=== PATIENT | male | born 1970 | race Caucasian/White ===

== ENCOUNTER 2017-07-06 01:29 | Emergency (ER) | payer SELFPAY ==
[2017-07-06 01:42] VITALS: BP 124/69; RESP 16; O2SAT 96
--- NOTE | 2017-07-06 01:56 | PD ---
HPI Chief Complaint: Alcohol/Drug Intoxication Time Seen by Provider: 01:41 Travel History International Travel<30 days: No Contact w/Intl Traveler<30days: No Traveled to known affect area: No History of Present Illness HPI This is a middle-age male brought in by EMS after being found sleeping on the side of the street intoxicated. The patient had his shirt up under his head. The patient is heavily intoxicated. He cannot answer any questions. There is no definite medication on the patient. There is no evidence of any trauma. [facility] Past Medical History Medical History: Unable to Obtain Tetanus Vaccination: Unknown Past Surgical History Surgical History: Unable to Obtain Social History Alcohol Use: Yes Tobacco Use: Yes Allergies-Medications (Allergen,Severity, Reaction): Coded Allergies: Unable to Assess (Verified Allergy, Unknown, 07/06/17) Reported Meds & Prescriptions Reported Meds & Active Scripts Active Active Prescriptions or Reported Medications Unobtainable Review of Systems ROS Limitations: Intoxication Physical Exam Narrative GENERAL: Well-nourished, well-developed patient. The patient is heavily intoxicated. His speech is slurred. There is no evidence of trauma. He is handling his secretions well. He has a positive gag. The patient is incontinent of urine. SKIN: Warm and dry. HEAD: Normocephalic and atraumatic. EYES: No scleral icterus. No injection or drainage. ENT: No nasal drainage noted. Mucous membranes pink. Airway patent. NECK: Supple, trachea midline. Moves head freely without obvious discomfort. CARDIOVASCULAR: Regular rate and rhythm without murmurs, gallops, or rubs. RESPIRATORY: Breath sounds equal bilaterally. No accessory muscle use. GASTROINTESTINAL: Abdomen soft, non-tender, nondistended. EXTREMITIES: No cyanosis or edema. BACK: Nontender without obvious deformity. No CVA tenderness. NEURO: Patient is alert to person only but heavily intoxicated.. no sensorimotor deficits. Nonfocal. Slurred speech. Ataxic from alcohol. PSYCH: No delusions. No auditory or visual hallucinations. Data Data Last Documented VS Vital Signs Date Time Temp Pulse Resp B/P (MAP) Pulse Ox O2 Delivery O2 Flow Rate FiO2 07/06/17 02:51 81 16 112/69 (83) 96 Room Air Orders Orders Restraints Non-Violent BRENDON.Q3H (07/06/17 01:41) Ed Discharge Order (07/06/17 02:52) Haloperidol Inj (Haldol Inj) (07/06/17 04:00) [facility] Medical Decision Making Medical Screen Exam Complete: Yes Emergency Medical Condition: Yes Medical Record Reviewed: Yes Differential Diagnosis Differential diagnoses: Alcohol intoxication, substance abuse, electrolyte abnormality, malingering Narrative Course Patient is placed in soft restraints due to his inability to cooperate with the medical staff. He is tender his care and is at risk to injuring himself or the staff. Patient's Accu-Chek is 108. There is no evidence of trauma. He will be monitored. At this time no testing is indicated. He will be allowed to sober up and then he'll be discharged in the morning. The patient is also given Haldol 10 mg IM. Diagnosis Primary Impression: Alcohol intoxication Qualified Codes: F10.920 - Alcohol use, unspecified with intoxication, uncomplicated Patient Instructions: General Instructions Additional Instructions: Rest. Increase fluids. Avoid alcohol. Avoid illegal substances. Follow-up with [facility] for detox. Do not operate a car or any heavy machinery under the influence of alcohol or drugs. Follow-up with a medical doctor this week. Return to the ER for emergencies Med/Other Pt SpecificInfo: No Meds Exist/No RX given Scripts Unable to Obtain Active Prescriptions or Reported Meds Disposition: 01 DISCHARGE HOME Condition: Stable Wyatt Carlson Jul 06, 2017 01:56
[2017-07-06 02:21] VITALS: BP 124/69; RESP 16; O2SAT 96
[2017-07-06 02:51] VITALS: BP 112/69; PULSE 81; RESP 16; O2SAT 96
[2017-07-06] MEDS ORDERED: HALOPERIDOL LACTATE 5 MG/ML AMP IM ONE (04:00)
[2017-07-06 05:49] VITALS: BP 110/67; PULSE 80; RESP 16; O2SAT 96
[2017-07-06 07:05] VITALS: BP 147/76; PULSE 82; RESP 16; O2SAT 97
[2017-07-06 08:59] VITALS: BP 158/84
== END 2017-07-06 09:05 | disposition home or self-care (01) ==
LOC: EDBD 01:29 → NEPD 01:29
DX: F10.129 Alcohol abuse with intoxication, unspecified (principal); Z72.0 Tobacco use
CPT/HCPCS: 96372; 99285; J1630

== ENCOUNTER 2017-07-24 02:48 | Emergency (ER) | payer OTHER ==
[2017-07-24 02:50] VITALS: BP 114/85; PULSE 83; RESP 18; TEMP 98.8; O2SAT 96
[2017-07-24] MEDS ORDERED: HALOPERIDOL LACTATE 5 MG/ML AMP IM ONE (03:00)
--- NOTE | 2017-07-24 03:50 | PD ---
HPI Chief Complaint: Alcohol/Drug Intoxication Time Seen by Provider: 02:52 Travel History International Travel<30 days: No Contact w/Intl Traveler<30days: No Traveled to known affect area: No History of Present Illness HPI 46-year-old white male presents to emergency department are act by PD. The patient allegedly was intoxicated walking on the street without his pants on. This is a patient who had just seen 2 weeks ago for a act to alcohol intoxication. The patient here his agitated and resisting his care. He is medicated with Haldol 10 mg IM. This is a similar presentation he had 2 weeks ago and required medication. The patient is heavily intoxicated in the history is not obtainable at this time. There is no evidence of any acute trauma. [facility] Past Medical History Medical History: Unable to Obtain Tetanus Vaccination: Unknown Influenza Vaccination: No Past Surgical History Surgical History: Unable to Obtain Social History Alcohol Use: Yes Tobacco Use: Yes Substance Use: No Allergies-Medications (Allergen,Severity, Reaction): Coded Allergies: Unable to Assess (Verified Allergy, Unknown, 07/24/17) Reported Meds & Prescriptions Reported Meds & Active Scripts Active Active Prescriptions or Reported Medications Unobtainable Review of Systems ROS Limitations: Intoxication Physical Exam Narrative GENERAL: Well-nourished, well-developed patient. Appears heavily intoxicated. He has no pants on. He is using profanities, he is resisting without violence. SKIN: Warm and dry. HEAD: Evidence of old trauma. EYES: No scleral icterus. No injection or drainage. ENT: No nasal drainage noted. Mucous membranes pink. Airway patent. NECK: Supple, trachea midline. Moves head freely without obvious discomfort. CARDIOVASCULAR: Regular rate and rhythm without murmurs, gallops, or rubs. RESPIRATORY: Breath sounds equal bilaterally. No accessory muscle use. GASTROINTESTINAL: Abdomen soft, non-tender, nondistended. EXTREMITIES: No cyanosis or edema. BACK: Nontender without obvious deformity. No CVA tenderness. NEURO: Patient is alert and oriented. no sensorimotor deficits. Nonfocal. Slurred mumbled speech. PSYCH: No delusions. No auditory or visual hallucinations. Data Data Last Documented VS Vital Signs Date Time Temp Pulse Resp B/P (MAP) Pulse Ox O2 Delivery O2 Flow Rate FiO2 07/24/17 02:50 98.8 83 18 114/85 (95) 96 Orders Orders Haloperidol Inj (Haldol Inj) (07/24/17 03:00) [facility] Medical Decision Making Medical Screen Exam Complete: Yes Emergency Medical Condition: Yes Medical Record Reviewed: Yes Differential Diagnosis Differential diagnoses: Alcohol intoxication, substance abuse, electrolyte abnormality, malingering Narrative Course Patient is medicated with Haldol 10 mg IM. The patient will be allowed to sleep it off here in the ER once he exhibits sobriety is Marchman act will be lifted. This is alcohol intoxication Diagnosis Primary Impression: Alcohol intoxication Qualified Codes: F10.920 - Alcohol use, unspecified with intoxication, uncomplicated Patient Instructions: General Instructions Additional Instructions: Rest. Increase fluids. Avoid alcohol. Avoid illegal substances. Follow-up with [facility] for detox. Do not operate a car or any heavy machinery under the influence of alcohol or drugs. Follow-up with a medical doctor this week. Return to the ER for emergencies Med/Other Pt SpecificInfo: No Meds Exist/No RX given Scripts Unable to Obtain Active Prescriptions or Reported Meds Disposition: 01 DISCHARGE HOME Wyatt Carlson Jul 24, 2017 03:50
--- NOTE | 2017-07-24 07:24 | PD ---
Physical Exam Date Seen by Provider: Jul 24, 2017 Narrative 46y male present to the ED intoxicated and without pants. He was picked up by the police department and brought to the ED for evaluation and as a [place] Act. Pt understands where he is, why he is here, and feel that he is ready to go home. Pt ambulated normally around the emergency department, was able to utilize restroom on his own, and has a place to go home. Pt apparently has a to go home to. He was released and advised to go home. Data Data Last Documented VS Vital Signs Date Time Temp Pulse Resp B/P (MAP) Pulse Ox O2 Delivery O2 Flow Rate FiO2 07/24/17 02:50 98.8 83 18 114/85 (95) 96 Orders Orders Haloperidol Inj (Haldol Inj) (07/24/17 03:00) MDM Supervised Visit with ELSA: Yes Diagnosis Primary Impression: Alcohol intoxication Qualified Codes: F10.920 - Alcohol use, unspecified with intoxication, uncomplicated Referrals: Family Practice Physician call for appointment Patient Instructions: General Instructions, Alcohol Intoxication (ED) Departure Forms: Tests/Procedures Additional Instruction: Rest. Increase fluids. Avoid alcohol. Avoid illegal substances. Follow-up with [facility] for detox. Do not operate a car or any heavy machinery under the influence of alcohol or drugs. Follow-up with a medical doctor this week. Return to the ER for emergencies Scripts Unable to Obtain Active Prescriptions or Reported Meds Disposition: 01 DISCHARGE HOME Lamar Dumont Jul 24, 2017 07:24
== END 2017-07-24 07:27 | disposition home or self-care (01) ==
LOC: NEPD 02:48
DX: F10.129 Alcohol abuse with intoxication, unspecified (principal)
CPT/HCPCS: 96372; 99282; J1630

== ENCOUNTER 2017-08-24 16:10 | Emergency (ER) | payer OTHER ==
[~2017-08-24] VITALS: Ht 177.8 cm; Wt 80.0 kg
[2017-08-24] MEDS ORDERED: SODIUM CHLOR 0.9% 1000 ML INJ 1,000 ML IV ONE (16:30)
[2017-08-24] MEDS ORDERED: ZIPRASIDONE MESYLATE 20 MG VIAL IM ONE (17:00)
--- NOTE | 2017-08-24 17:04 | PD ---
HPI Chief Complaint: Marchman act with presumed alcohol intoxication Time Seen by Provider: 16:22 Travel History International Travel<30 days: No (unknown) Contact w/Intl Traveler<30days: No (unknown) Traveled to known affect area: No ( unknown ) History of Present Illness HPI This is a 47-year-old male who is brought in by [place] police under a [place] act. [place]. The patient was also combative and agitated. The patient was kicking and spitting at the security and police officers. Patient appears very intoxicated with slurred speech and is extremely belligerent. I am unable to obtain any history or review of systems secondary to his severely intoxicated state. The patient is screaming profanities at both myself and the rest of the staff members. [facility] Social History Alcohol Use: Yes Tobacco Use: Yes Substance Use: No Allergies-Medications (Allergen,Severity, Reaction): Coded Allergies: Unable to Assess (Verified Allergy, Unknown, 07/24/17) Reported Meds & Prescriptions Reported Meds & Active Scripts Active Active Prescriptions or Reported Medications Unobtainable Review of Systems ROS Limitations: Intoxication (unable to obtain any review of systems.) Except as stated in HPI: all other systems reviewed are Neg Physical Exam Narrative GENERAL: Well-developed well-nourished male in no acute respiratory distress. The patient appears to be acutely agitated and intoxicated. SKIN: Focused skin assessment warm/dry. HEAD: Normocephalic. The patient has an abrasion to his left upper forehead. EYES: No scleral icterus. No injection or drainage. ENT: No nasal bleeding or discharge. Mucous membranes pink and moist. NECK: Trachea midline. Supple. CARDIOVASCULAR: Regular rate and rhythm. No murmur appreciated. RESPIRATORY: No accessory muscle use. Clear to auscultation. Breath sounds equal bilaterally. The patient would not cooperate with pulmonary exam however no obvious abnormal breath sounds. GASTROINTESTINAL: Abdomen soft, obese non-tender, nondistended. MUSCULOSKELETAL: No obvious deformities. No clubbing. No cyanosis. No edema. There is an abrasion to his right lower knee. The patient was observed trying to kick me with that knee. NEUROLOGICAL: Awake and combative and belligerent. No obvious cranial nerve deficits. Motor grossly within normal limits. Severe slurred speech. PSYCHIATRIC: Appropriate mood and affect; insight and judgment normal. Data Data Orders Orders Complete Blood Count With Diff (08/24/17 16:24) Comprehensive Metabolic Panel (08/24/17 16:24) Ecg Monitoring (08/24/17 16:24) Oximetry (08/24/17 16:24) Drug Screen, Random Urine (08/24/17 16:24) Alcohol (Ethanol) (08/24/17 16:24) Sodium Chlor 0.9% 1000 Ml Inj (Ns 1000 M (08/24/17 16:30) Knee, Ltd (1 Or 2vws) (08/24/17 16:24) Ziprasidone Inj (Geodon Inj) (08/24/17 17:00) Restraints Violent (08/24/17 19:04) Labs Laboratory Tests Test 08/24/17 17:50 White Blood Count 9.4 TH/MM3 Red Blood Count 4.55 MIL/MM3 Hemoglobin 13.4 GM/DL Hematocrit 39.9 % Mean Corpuscular Volume 87.6 FL Mean Corpuscular Hemoglobin 29.4 PG Mean Corpuscular Hemoglobin Concent 33.6 % Red Cell Distribution Width 14.3 % Platelet Count 385 TH/MM3 Mean Platelet Volume 7.8 FL Neutrophils (%) (Auto) 67.9 % Lymphocytes (%) (Auto) 23.5 % Monocytes (%) (Auto) 4.8 % Eosinophils (%) (Auto) 3.0 % Basophils (%) (Auto) 0.8 % Neutrophils # (Auto) 6.4 TH/MM3 Lymphocytes # (Auto) 2.2 TH/MM3 Monocytes # (Auto) 0.5 TH/MM3 Eosinophils # (Auto) 0.3 TH/MM3 Basophils # (Auto) 0.1 TH/MM3 CBC Comment DIFF FINAL Differential Comment Blood Urea Nitrogen 11 MG/DL Creatinine 1.12 MG/DL Random Glucose 97 MG/DL Albumin 3.5 GM/DL Calcium Level 8.2 MG/DL Aspartate Amino Transf (AST/SGOT) 28 U/L Alanine Aminotransferase (ALT/SGPT) 25 U/L Sodium Level 140 MEQ/L Potassium Level 3.9 MEQ/L Chloride Level 109 MEQ/L Carbon Dioxide Level 22.2 MEQ/L Anion Gap 9 MEQ/L Estimat Glomerular Filtration Rate 71 ML/MIN MDM Medical Decision Making Medical Screen Exam Complete: Yes Emergency Medical Condition: Yes Differential Diagnosis Acute alcohol intoxication versus polysubstance abuse versus metabolic derangement Narrative Course 47-year-old male presents here under her Marchman act. The patient is acutely agitated and belligerent. He is violent towards staff. The patient is been noted to spit and kicked or stepped member. He is placed in physical restraints. He's been given Geodon 10 mg signed times one dose. Alcohol levels pending at this time. He'll be signed out to Dr. Xavier Bryant, physician replacing it changed shift. The patient will need to be observed until he is appropriately sober. Diagnosis Primary Impression: Alcohol intoxication Additional Impression: Aggressive behavior Scripts Unable to Obtain Active Prescriptions or Reported Meds Fabio Lucero MD Aug 24, 2017 17:04
[2017-08-24 18:30] LABS: AUTOMATED NEUTROPHIL # 6.4 TH/MM3 (1.8-7.7); BASOPHIL # 0.1 TH/MM3 (0-0.2); BASOPHIL % 0.8 % (0.0-2.0); EOSINOPHIL # 0.3 TH/MM3 (0-0.4); HEMATOCRIT 39.9 % (39.0-51.0); HEMOGLOBIN 13.4 GM/DL (13.0-17.0); LYMPH % 23.5 % (9.0-44.0); LYMPHOCYTE # 2.2 TH/MM3 (1.0-4.8); MEAN CELL VOLUME 87.6 FL (80.0-100.0); MEAN CORPUSCULAR HEMOGLOBIN 29.4 PG (27.0-34.0); MEAN CORPUSCULAR HGB CONC 33.6 % (32.0-36.0); MEAN PLATELET VOLUME 7.8 FL (7.0-11.0); MONO % 4.8 % (0.0-8.0); MONOCYTE # 0.5 TH/MM3 (0-0.9); NEUT % 67.9 % (16.0-70.0); PLATELET COUNT 385 TH/MM3 (150-450); RED BLOOD COUNT 4.55 MIL/MM3 (4.50-5.90); RED CELL DISTRIBUTION WIDTH 14.3 % (11.6-17.2); WHITE BLOOD COUNT 9.4 TH/MM3 (4.0-11.0)
[2017-08-24 19:00] LABS: ALBUMIN 3.5 GM/DL (3.4-5.0); ALT (GPT) 25 U/L (12-78); AST (GOT) 28 U/L (15-37); BICARBONATE 22.2 MEQ/L (21.0-32.0); BLOOD UREA NITROGEN 11 MG/DL (7-18); CALCIUM 8.2 MG/DL (8.5-10.1); CHLORIDE 109 MEQ/L (98-107); CREATININE 1.12 MG/DL (0.60-1.30); GLOMERULAR FILTRATION RATE 71 ML/MIN (>89); GLUCOSE,RANDOM 97 MG/DL (74-106); SODIUM (NA) 140 MEQ/L (136-145)
[2017-08-24 19:04] LABS: ALKALINE PHOSPHATASE 61 U/L (45-117); TOTAL BILIRUBIN ADULT 0.4 MG/DL (0.2-1.0); TOTAL PROTEIN 7.5 GM/DL (6.4-8.2)
[2017-08-24] MEDS ORDERED: LORazepam 2 MG/ML VIAL IV PUSH ONE (19:45)
[2017-08-24 20:30] VITALS: BP 139/88; PULSE 97; RESP 12; O2SAT 98
--- NOTE | 2017-08-24 21:41 | RADRPT ---
EXAM DATE/TIME: 08/24/2017 20:57 [facility] COMPARISON: No previous studies available for comparison. INDICATIONS : Right knee pain. MEDICAL HISTORY : None. SURGICAL HISTORY : None. ENCOUNTER: Initial ACUITY: 1 day PAIN SCORE: Non-responsive. LOCATION: Right knee. FINDINGS: 2 views right knee. Bipartite patella noted. Bone alignment within normal limits. No evidence of fra cture. No evidence of joint effusion. Mild soft tissue swelling at the patellar tendon insertion. No evidence of joint narrowing. CONCLUSION: 1. Possible distal patellar tendinosis. 2. Bipartite patella. Jaswant Segovia MD on August 24, 2017 at 21:39 Board Certified Radiologist. This report was verified electronically.
[2017-08-25 00:11] VITALS: BP 119/71; PULSE 87; RESP 16; O2SAT 98
[2017-08-25 04:34] VITALS: BP 141/76; PULSE 93; RESP 16; O2SAT 98
--- NOTE | 2017-08-25 06:28 | PD ---
Data Data Last Documented VS Vital Signs Date Time Temp Pulse Resp B/P (MAP) Pulse Ox O2 Delivery O2 Flow Rate FiO2 08/25/17 04:34 93 16 141/76 (97) 98 Room Air 08/24/17 20:30 2.00 Orders Orders Complete Blood Count With Diff (08/24/17 16:24) Comprehensive Metabolic Panel (08/24/17 16:24) Ecg Monitoring (08/24/17 16:24) Oximetry (08/24/17 16:24) Drug Screen, Random Urine (08/24/17 16:24) Alcohol (Ethanol) (08/24/17 16:24) Sodium Chlor 0.9% 1000 Ml Inj (Ns 1000 M (08/24/17 16:30) Knee, Ltd (1 Or 2vws) (08/24/17 16:24) Ziprasidone Inj (Geodon Inj) (08/24/17 17:00) Restraints Violent (08/24/17 19:04) Lorazepam Inj (Ativan Inj) (08/24/17 19:45) Ed Discharge Order (08/25/17 06:26) Labs Laboratory Tests Test 08/24/17 17:50 White Blood Count 9.4 TH/MM3 Red Blood Count 4.55 MIL/MM3 Hemoglobin 13.4 GM/DL Hematocrit 39.9 % Mean Corpuscular Volume 87.6 FL Mean Corpuscular Hemoglobin 29.4 PG Mean Corpuscular Hemoglobin Concent 33.6 % Red Cell Distribution Width 14.3 % Platelet Count 385 TH/MM3 Mean Platelet Volume 7.8 FL Neutrophils (%) (Auto) 67.9 % Lymphocytes (%) (Auto) 23.5 % Monocytes (%) (Auto) 4.8 % Eosinophils (%) (Auto) 3.0 % Basophils (%) (Auto) 0.8 % Neutrophils # (Auto) 6.4 TH/MM3 Lymphocytes # (Auto) 2.2 TH/MM3 Monocytes # (Auto) 0.5 TH/MM3 Eosinophils # (Auto) 0.3 TH/MM3 Basophils # (Auto) 0.1 TH/MM3 CBC Comment DIFF FINAL Differential Comment Blood Urea Nitrogen 11 MG/DL Creatinine 1.12 MG/DL Random Glucose 97 MG/DL Total Protein 7.5 GM/DL Albumin 3.5 GM/DL Calcium Level 8.2 MG/DL Alkaline Phosphatase 61 U/L Aspartate Amino Transf (AST/SGOT) 28 U/L Alanine Aminotransferase (ALT/SGPT) 25 U/L Total Bilirubin 0.4 MG/DL Sodium Level 140 MEQ/L Potassium Level 3.9 MEQ/L Chloride Level 109 MEQ/L Carbon Dioxide Level 22.2 MEQ/L Anion Gap 9 MEQ/L Estimat Glomerular Filtration Rate 71 ML/MIN Ethyl Alcohol Level 326 MG/DL [facility] Supervised Visit with ELSA: Yes Interpretation(s) X-ray of the knee: Possible tendinosis, no fracture or dislocation. Labs show elevated alcohol, otherwise unremarkable. Narrative Course 47-year-old man, intoxicated with aggressive behavior. Sign out to me to follow -up monitor overnight. Was initially given Geodon and Ativan. Now sober, ambulatory, requesting discharge. Diagnosis Primary Impression: Alcohol intoxication Additional Impression: Aggressive behavior Additional Instruction: Avoid alcohol and illicit drugs. Scripts Unable to Obtain Active Prescriptions or Reported Meds Disposition: 01 DISCHARGE HOME Condition: Stable Xavier Bryant MD Aug 25, 2017 06:28
== END 2017-08-25 06:35 | disposition home or self-care (01) ==
LOC: NEPE 16:10
DX: F10.129 Alcohol abuse with intoxication, unspecified (principal); Z72.0 Tobacco use
CPT/HCPCS: 73560; 80053; 80307; 85025; 96361; 96372; 96374; 99285; J2060; J3486; J7030

== ENCOUNTER 2017-09-16 00:26 | Emergency (ER) | payer OTHER ==
[~2017-09-16] VITALS: Ht 180.3 cm; Wt 107.0 kg
--- NOTE | 2017-09-16 00:55 | PD ---
HPI Chief Complaint: Medical Clearance Time Seen by Provider: 00:55 Travel History International Travel<30 days: No Contact w/Intl Traveler<30days: No Traveled to known affect area: No History of Present Illness HPI 47-year-old male presents to emergency department for evaluation. Patient is in law enforcement custody. He struck his head, how is unclear. Denies any loss of consciousness. He has been drinking alcohol. He denies any pain. He is here for medical clearance. [facility] Past Medical History Medical History: Unable to Obtain Tetanus Vaccination: Unknown ?: Not Past Surgical History Surgical History: Unable to Obtain Social History Alcohol Use: Yes Tobacco Use: Yes Substance Use: Yes (PT STATES "I DO ALL THE DRUGS, WHATEVER I CAN GET MY HANDS ON") Allergies-Medications (Allergen,Severity, Reaction): Coded Allergies: Unable to Assess (Verified Allergy, Unknown, 07/24/17) Reported Meds & Prescriptions Reported Meds & Active Scripts Active Review of Systems Except as stated in HPI: all other systems reviewed are Neg Physical Exam Narrative GENERAL: Well-nourished male patient, with smell of alcohol on his breath, ambulatory and in no acute distress. SKIN: Focused skin assessment warm/dry. Abrasion to the right superior scalp. HEAD: Normocephalic. EYES: Pupils equal and round. No scleral icterus. Remote left EYE trauma. The sclera is injected which the patient states is chronic for him. ENT: No nasal bleeding or discharge. Mucous membranes pink and moist. NECK: Trachea midline. No JVD. CARDIOVASCULAR: Regular rate and rhythm. No murmur appreciated. RESPIRATORY: No accessory muscle use. Clear to auscultation. Breath sounds equal bilaterally. GASTROINTESTINAL: Abdomen soft, non-tender, nondistended. Hepatic and splenic margins not palpable. MUSCULOSKELETAL: No obvious deformities. No clubbing. No cyanosis. No edema. NEUROLOGICAL: Awake and alert. No obvious cranial nerve deficits. Motor grossly within normal limits. Normal speech. Data Data Orders Orders Ct Brain W/O Iv Contrast(Rout) (09/16/17 ) Ed Discharge Order (09/16/17 01:53) [facility] Medical Decision Making Medical Screen Exam Complete: Yes Emergency Medical Condition: Yes Medical Record Reviewed: Yes Differential Diagnosis Minor head injury versus intracranial hemorrhage versus go fracture versus contusion Narrative Course 47-year-old male presents to emergency department for evaluation and medical clearance to go to care home. Patient appears without distress. He does have strong smell of alcohol on his breath. He does have superficial abrasions to the right superior scalp. CT imaging confirms no acute intracranial abnormality. Patient is discharged in law enforcement custody. Diagnosis Primary Impression: Minor head injury without loss of consciousness Qualified Codes: S09.90XA - Unspecified injury of head, initial encounter Referrals: Primary Care Physician Patient Instructions: General Instructions, Head Injury (ED) Additional Instructions: Follow-up with your primary care provider Tylenol or ibuprofen as instructed the package as needed for pain Return immediately to the emergency department with any acute worsening of symptoms Med/Other Pt SpecificInfo: No Change to Meds Scripts Unable to Obtain Active Prescriptions or Reported Meds Disposition: 01 DISCHARGE HOME Condition: Stable Martha Estrada Sep 16, 2017 00:55
--- NOTE | 2017-09-16 01:48 | RADRPT ---
EXAM DATE/TIME: 09/16/2017 01:33 [facility] COMPARISON: No previous studies available for comparison. INDICATIONS : Trauma; laceration. RADIATION DOSE: 42.45 CTDIvol (mGy) MEDICAL HISTORY : None SURGICAL HISTORY : None. ENCOUNTER: Initial ACUITY: 1 day PAIN SCALE: 5/10 LOCATION: cranial TECHNIQUE: Multiple contiguous axial images were obtained of the head. Using automated exposure control and adj ustment of the mA and/or kV according to patient size, radiation dose was kept as low as reasonably a chievable to obtain optimal diagnostic quality images. DICOM format image data is available electro nically for review and comparison. FINDINGS: CEREBRUM: The ventricles are normal for age. No evidence of midline shift, mass lesion, hemorrhage or acute in farction. No extra-axial fluid collections are seen. POSTERIOR FOSSA: The cerebellum and brainstem are intact. The 4th ventricle is midline. The cerebellopontine angle i s unremarkable. EXTRACRANIAL: The visualized portion of the orbits is intact. SKULL: The calvaria is intact. No evidence of skull fracture. CONCLUSION: No acute disease. Shahram Arshad MD on September 16, 2017 at 1:45 Board Certified Radiologist. This report was verified electronically.
== END 2017-09-16 02:04 | disposition home or self-care (01) ==
LOC: NEPE 00:26 → NEPD 02:04
DX: S09.90XA Unspecified injury of head, initial encounter (principal); X58.XXXA Exposure to other specified factors, initial encounter; Z72.0 Tobacco use
CPT/HCPCS: 70450; 99284